=== PATIENT | male | born 1970 | race Caucasian/White ===

== ENCOUNTER 2023-12-31 21:24 | Inpatient (IN) ==
[2023-12-31] MEDS: morphine 4 MG/ML VIAL IV PRN (21:51)
[2023-12-31] MEDS: LACTATED RINGERS 1,000 ML IV ONE (21:51)
[2023-12-31] MEDS: KETOROLAC 30 MG/ML VIAL IV ONE (21:52)
[2023-12-31 22:00] LABS: Basophils # (Auto) 0.04 K/mcL (0.00-0.30); Basophils % (Auto) 0.7 % (0.0-2.0); Eosinophils # (Auto) 0.11 K/mcL (0.00-0.70); Eosinophils % (Auto) 1.8 % (0.0-7.0); Hematocrit 39.3 % (40.1-51.0); Hemoglobin 13.3 g/dL (13.7-17.5); Lymphocytes # (Auto) 3.18 K/mcL (1.50-4.80); Lymphocytes % (Auto) 52.8 % (15.5-49.0); Mean Cell Volume 86.4 fL (80.0-100.0); Mean Corpuscular HGB Conc 33.8 g/dL (31.0-36.0); Mean Platelet Volume 10.1 fL (8.8-12.5); Monocytes # (Auto) 0.33 K/mcL (0.10-0.90); Monocytes % (Auto) 5.5 % (1.0-12.0); Platelet Count 175 K/mcL (140-440); RBC 4.55 M/mcL (4.63-6.08); Red Cell Distribution Width 15.3 % (11.5-14.5)
[2023-12-31 22:19] LABS: Alcohol,Blood 0.255 gm/dL (<0.010)
[2023-12-31 23:00] LABS: ALT/SGPT 35 U/L (<40); AST/SGOT 56 U/L (<40); Albumin 4.2 gm/dL (3.2-5.2); Alkaline Phosphatase 75 U/L (39-117); Bilirubin,Total < 0.2 mg/dL (0.1-1.0); Blood Urea Nitrogen 8 mg/dL (6-20); Carbon Dioxide 22 mmol/L (22-30); Chloride 82 mmol/L (96-108); Globulin 2.1 gm/dL (2.2-3.7); Glomerular Filtration Rate 123; Glucose 90 mg/dL (70-105)
[2023-12-31] MEDS: 0.9 % SODIUM CHLORIDE 1,000 ML IV SCH (23:39)
[2023-12-31] MEDS ORDERED: SENNOSIDES 1 TABLET PO PRN (23:41)
[2023-12-31] MEDS ORDERED: ONDANSETRON 4 MG/2 ML VIAL IV PRN (23:41)
[2023-12-31] MEDS ORDERED: LACTULOSE 20 GM/30 ML ORAL.SOL PO PRN (23:41)
[2023-12-31] MEDS ORDERED: ACETAMINOPHEN 325 MG TABLET PO PRN (23:41)
[2024-01-01 00:59] LABS: Blood Urea Nitrogen 8 mg/dL (6-20); Calcium 8.3 mg/dL (8.6-10.4); Carbon Dioxide 24 mmol/L (22-30); Chloride 86 mmol/L (96-108); Glomerular Filtration Rate 123; Glucose 88 mg/dL (70-105)
[2024-01-01] MEDS: IPRATROPIUM/ALBUTEROL 3 ML AMPUL.NEB NEB ONE (01:00)
[2024-01-01] MEDS: IPRATROPIUM/ALBUTEROL 3 ML AMPUL.NEB NEB SCH (03:43)
[2024-01-01] MEDS: 0.9 % SODIUM CHLORIDE 10 ML SYRINGE IV SCH ×2 (06:22)
[2024-01-01] MEDS: morphine 10 MG/ML VIAL IV ONE (06:22)
[2024-01-01] MEDS: LORazepam 2 MG/ML VIAL IV PRN (06:46)
[2024-01-01] MEDS: METHOCARBAMOL 1,000 MG/10 ML VIAL IV ONE (08:31)
[2024-01-01 08:37] LABS: Blood Urea Nitrogen 7 mg/dL (6-20); Calcium 8.4 mg/dL (8.6-10.4); Carbon Dioxide 25 mmol/L (22-30); Chloride 90 mmol/L (96-108); Glomerular Filtration Rate 123; Glucose 75 mg/dL (70-105)
[2024-01-01 09:42] LABS: Appearance,Urine Clear (Clear); Bilirubin,Urine Negative (Negative); Color,Urine Yellow; Culture Indicated,Urine No; Glucose,Urine (UA) Negative (Negative); Ketones,Urine Negative (Negative); Leukocyte Esterase,Urine Negative /uL (Negative); Nitrate,Urine Negative (Negative); PH,Urine 6.5 (5.0-9.0); Protein,Urine 30 mg/dL (Negative); Urine Blood Negative ery/mcL (Negative); Urine RBC 0 /hpf (0-3); Urine Squamous Epithelial Cell 0 /hpf (0-4); Urine WBC 0 /hpf (0-4); Urobilinogen,Urine Normal
[2024-01-01] MEDS: IPRATROPIUM/ALBUTEROL 3 ML AMPUL.NEB NEB PRN ×2 (10:51→14:27)
[2024-01-01] MEDS: DOCUSATE SODIUM 100 MG CAPSULE PO SCH ×2 (10:56→20:48)
[2024-01-01] MEDS: THIAMINE 100 MG TABLET PO SCH (10:56)
[2024-01-01] MEDS ORDERED: SENNOSIDES 1 TABLET PO PRN (11:16)
[2024-01-01] MEDS ORDERED: HYDROcodone/APAP 5/325MG TABLET PO PRN (11:16)
[2024-01-01] MEDS ORDERED: POLYETHYLENE GLYCOL 3350 17 GM PACKET PO PRN (11:16)
[2024-01-01] MEDS ORDERED: POTASSIUM CHLORIDE 20 MEQ TABLET PO PRN ×2 (11:16)
[2024-01-01] MEDS ORDERED: MAGNESIUM SULFATE 2 GM/50 ML BAG IV PRN (11:16)
[2024-01-01] MEDS ORDERED: POTASSIUM CHLORIDE 40 MEQ in DEXTROSE 5% IN WATER 500 ML IV PRN (11:16)
[2024-01-01] MEDS ORDERED: chlordiazePOXIDE 25 MG CAPSULE PO PRN (11:22)
[2024-01-01] MEDS: 0.9 % SODIUM CHLORIDE 1,000 ML IV SCH ×2 (11:29→20:09)
[2024-01-01] MEDS: LOSARTAN 50 MG TABLET PO SCH (11:44)
[2024-01-01] MEDS: MAGNESIUM SULFATE 2 GM/50 ML BAG IV ONE (11:44)
[2024-01-01] MEDS: METHOCARBAMOL 500 MG TABLET PO PRN (11:46)
[2024-01-01] MEDS: NICOTINE 21 MG PATCH TOPICAL SCH (11:46)
[2024-01-01] MEDS: GABAPENTIN 100 MG CAPSULE PO PRN (11:47)
[2024-01-01] MEDS: THIAMINE 100 MG in 0.9 % SODIUM CHLORIDE 50 ML IV SCH (12:56)
[2024-01-01] MEDS: LABETALOL 5 MG/ML ML IV PRN (13:19)
[2024-01-01] MEDS: busPIRone 15 MG TABLET PO SCH (15:17)
[2024-01-01] MEDS: ENALAPRILAT 1.25 MG/ML VIAL IV PRN (15:17)
[2024-01-01] MEDS: morphine 4 MG/ML VIAL IV PRN (15:24)
[2024-01-01] MEDS ORDERED: GLYCOPYRROLATE 0.2 MG/ML VIAL IV ONE (17:52)
[2024-01-01] MEDS ORDERED: KETAMINE 50 MG/ML Syringe IV ONE (17:52)
[2024-01-01] MEDS ORDERED: DEXAMETHASONE 10 MG/ML VIAL ONE (17:52)
[2024-01-01] MEDS ORDERED: ONDANSETRON 4 MG/2 ML VIAL ONE (17:52)
[2024-01-01] MEDS ORDERED: PROPOFOL 200 MG/20 ML VIAL IV ONE (17:52)
[2024-01-01] MEDS ORDERED: MAGNESIUM SULFATE 2 GM/50 ML BAG IV ONE (17:56)
[2024-01-01] MEDS ORDERED: ceFAZolin 1 GM VIAL ONE (18:08)
[2024-01-01] MEDS ORDERED: TRANEXAMIC ACID 1,000 MG/10 ML VIAL ONE (18:22)
[2024-01-01] MEDS ORDERED: PHENYLephrine 1 MG/10 ML SYRINGE (ANEST) ONE (18:29)
[2024-01-01] MEDS ORDERED: ePHEDrine 50 MG/ML AMPUL IV ONE (18:35)
[2024-01-01] MEDS ORDERED: fentaNYL 100 MCG/2 ML VIAL ONE (18:41)
[2024-01-01] MEDS ORDERED: fentaNYL 100 MCG/2 ML VIAL IV PRN (18:58)
[2024-01-01] MEDS ORDERED: BENZOCAINE/MENTHOL 1 LOZENGE PO PRN (19:07)
[2024-01-01] MEDS: FLUTICASONE/SALMETEROL 250/50 INHALER #14 INH SCH (20:43)
[2024-01-01] MEDS: ceFAZolin 2 GM in DEXTROSE 5% IN WATER 50 ML IV SCH (20:44)
[2024-01-01] MEDS: MONTELUKAST 10 MG TABLET PO SCH (20:51)
[2024-01-01] MEDS: ACETAMINOPHEN 500 MG TABLET PO SCH (21:29)
[2024-01-01] MEDS: oxyCODONE IR 5 MG TABLET PO PRN (23:54)
[2024-01-02] MEDS: ceFAZolin 1 GM VIAL IV SCH (01:38)
[2024-01-02 05:58] LABS: Basophils # (Auto) 0.01 K/mcL (0.00-0.30); Basophils % (Auto) 0.2 % (0.0-2.0); Eosinophils # (Auto) 0 K/mcL (0.00-0.70); Eosinophils % (Auto) 0 % (0.0-7.0); Hematocrit 34.5 % (40.1-51.0); Hemoglobin 11.2 g/dL (13.7-17.5); Lymphocytes # (Auto) 0.67 K/mcL (1.50-4.80); Lymphocytes % (Auto) 13.2 % (15.5-49.0); Mean Cell Volume 90.6 fL (80.0-100.0); Mean Corpuscular HGB Conc 32.5 g/dL (31.0-36.0); Mean Platelet Volume 11.3 fL (8.8-12.5); Monocytes # (Auto) 0.31 K/mcL (0.10-0.90); Monocytes % (Auto) 6.1 % (1.0-12.0); Neutrophils % (Auto) 80.3 % (38.0-78.0); Platelet Count 131 K/mcL (140-440); RBC 3.81 M/mcL (4.63-6.08); Red Cell Distribution Width 15.6 % (11.5-14.5); WBC 5.1 K/mcL (4.5-11.0)
[2024-01-02 06:36] LABS: ALT/SGPT 23 U/L (<40); AST/SGOT 27 U/L (<40); Albumin 3.5 gm/dL (3.2-5.2); Albumin/Globulin Ratio 1.8 (1.0-2.3); Alkaline Phosphatase 66 U/L (39-117); Bilirubin,Direct < 0.2 mg/dL (0-0.3); Bilirubin,Total 0.4 mg/dL (0.1-1.0); Blood Urea Nitrogen 9 mg/dL (6-20); Calcium 8.3 mg/dL (8.6-10.4); Carbon Dioxide 24 mmol/L (22-30); Chloride 92 mmol/L (96-108); Glomerular Filtration Rate 123; Glucose 185 mg/dL (70-105); Lactate Dehydrogenase 158 U/L (135-225); Phosphorous 3.3 mg/dL (2.5-4.5); Triglycerides 44 mg/dL (<150)
[2024-01-02] MEDS: LEVOTHYROXINE 50 MCG TABLET PO SCH (07:28)
[2024-01-02] MEDS: PANTOPRAZOLE 40 MG TABLET PO SCH (07:28)
[2024-01-02] MEDS: MULTIVIT,THER IRON,CA,FA & MIN 1 TABLET PO SCH (08:08)
[2024-01-02] MEDS: SODIUM CHLORIDE 1 GM TABLET PO SCH (08:08)
[2024-01-02] MEDS: FOLIC ACID 1 MG TABLET PO SCH (08:09)
[2024-01-02] MEDS: VENLAFAXINE 75 MG TABLET PO SCH (08:09)
[2024-01-02] MEDS: ENOXAPARIN 40 MG/0.4 ML SYRINGE SQ SCH (08:10)
[2024-01-03 07:45] LABS: Blood Urea Nitrogen 8 mg/dL (6-20); Calcium 8.6 mg/dL (8.6-10.4); Carbon Dioxide 28 mmol/L (22-30); Chloride 94 mmol/L (96-108); Glomerular Filtration Rate 135; Glucose 108 mg/dL (70-105)
[2024-01-03] MEDS: THIAMINE 100 MG/ML VIAL ONE (08:29)
[2024-01-04 06:25] LABS: Hematocrit 28.8 % (40.1-51.0); Hemoglobin 9.2 g/dL (13.7-17.5)
[2024-01-04] MEDS: THIAMINE 100 MG TABLET PO SCH (08:28)
[2024-01-04 14:58] LABS: Hematocrit 29.7 % (40.1-51.0); Hemoglobin 9.4 g/dL (13.7-17.5)
[2024-01-05 06:25] LABS: Hematocrit 28.1 % (40.1-51.0); Hemoglobin 9.1 g/dL (13.7-17.5)
[2024-01-05 06:38] LABS: Blood Urea Nitrogen 8 mg/dL (6-20); Calcium 8.6 mg/dL (8.6-10.4); Carbon Dioxide 29 mmol/L (22-30); Chloride 95 mmol/L (96-108); Glomerular Filtration Rate 152; Glucose 110 mg/dL (70-105)
[2024-01-05] MEDS: ASPIRIN 81 MG TAB.CHEW CHEWED SCH (09:03)
== END 2024-01-05 12:25 | disposition home or self-care (01) | DRG 481 ==
LOC: ED 21:24 → ICU 01-01 09:39 → MEDSUR 01-03 13:01
PROVIDERS: ADMIT Internal Medicine; ATTEND Internal Medicine

== ENCOUNTER 2024-03-08 16:28 | Inpatient (IN) ==
[2024-03-08] MEDS ORDERED: IOPAMIDOL 100 ML BOTTLE IV ONE (16:29)
[2024-03-08 17:26] LABS: Basophils # (Auto) 0.04 K/mcL (0.00-0.30); Basophils % (Auto) 0.7 % (0.0-2.0); Eosinophils # (Auto) 0.06 K/mcL (0.00-0.70); Eosinophils % (Auto) 1.1 % (0.0-7.0); Hematocrit 40.6 % (40.1-51.0); Hemoglobin 13.6 g/dL (13.7-17.5); Lymphocytes # (Auto) 1.54 K/mcL (1.50-4.80); Lymphocytes % (Auto) 27.4 % (15.5-49.0); Mean Cell Volume 83.7 fL (80.0-100.0); Mean Corpuscular HGB Conc 33.5 g/dL (31.0-36.0); Mean Platelet Volume 9.7 fL (8.8-12.5); Monocytes # (Auto) 0.26 K/mcL (0.10-0.90); Monocytes % (Auto) 4.6 % (1.0-12.0); Platelet Count 188 K/mcL (140-440); RBC 4.85 M/mcL (4.63-6.08); Red Cell Distribution Width 17.1 % (11.5-14.5); WBC 5.6 K/mcL (4.5-11.0)
[2024-03-08 17:53] LABS: ALT/SGPT 57 U/L (<40); AST/SGOT 111 U/L (<40); Albumin/Globulin Ratio 1.3 (1.0-2.3); Alkaline Phosphatase 321 U/L (39-117); Bilirubin,Total 0.4 mg/dL (0.1-1.0); Blood Urea Nitrogen 4 mg/dL (6-20); Calcium 9.3 mg/dL (8.6-10.4); Carbon Dioxide 24 mmol/L (22-30); Chloride 77 mmol/L (96-108); Globulin 3.2 gm/dL (2.2-3.7); Glomerular Filtration Rate 135; Glucose 91 mg/dL (70-105)
[2024-03-08 18:08] LABS: Alcohol,Blood 0.215 gm/dL (<0.010)
[2024-03-08] MEDS: IPRATROPIUM/ALBUTEROL 3 ML AMPUL.NEB NEB ONE (20:17)
[2024-03-08] MEDS: PHENobarbital SOD 130 MG/ML VIAL IV ONE ×2 (21:13→22:10)
[2024-03-08] MEDS: THIAMINE 500 MG in 0.9 % SODIUM CHLORIDE 50 ML IV ONE (21:13)
[2024-03-08] MEDS ORDERED: NICOTINE POLACRILEX 2 MG GUM CHEW/PARK PRN (23:24)
[2024-03-08 23:39] LABS: Blood Urea Nitrogen 4 mg/dL (6-20); Calcium 9.1 mg/dL (8.6-10.4); Carbon Dioxide 27 mmol/L (22-30); Chloride 82 mmol/L (96-108); Glomerular Filtration Rate 135; Glucose 85 mg/dL (70-105)
[2024-03-09] MEDS ORDERED: ONDANSETRON 4 MG/2 ML VIAL IV PRN (00:06)
[2024-03-09] MEDS ORDERED: MAGNESIUM HYDROXIDE 30 ML ORAL.SUSP PO PRN (00:06)
[2024-03-09] MEDS: LORazepam 2 MG/ML VIAL IV PRN (00:36)
[2024-03-09] MEDS: NICOTINE 14 MG PATCH TOPICAL SCH (00:38)
[2024-03-09] MEDS: LORazepam 2 MG/ML VIAL ONE (00:38)
[2024-03-09] MEDS: NICOTINE 14 MG PATCH ONE (01:10)
[2024-03-09 03:28] LABS: Basophils # (Auto) 0.03 K/mcL (0.00-0.30); Basophils % (Auto) 0.6 % (0.0-2.0); Eosinophils # (Auto) 0.04 K/mcL (0.00-0.70); Eosinophils % (Auto) 0.8 % (0.0-7.0); Hematocrit 38.1 % (40.1-51.0); Hemoglobin 12.9 g/dL (13.7-17.5); Lymphocytes # (Auto) 1.38 K/mcL (1.50-4.80); Lymphocytes % (Auto) 28.9 % (15.5-49.0); Mean Cell Volume 83.2 fL (80.0-100.0); Mean Corpuscular HGB Conc 33.9 g/dL (31.0-36.0); Mean Platelet Volume 9.7 fL (8.8-12.5); Monocytes # (Auto) 0.39 K/mcL (0.10-0.90); Monocytes % (Auto) 8.2 % (1.0-12.0); Neutrophils % (Auto) 61.3 % (38.0-78.0); Platelet Count 169 K/mcL (140-440); RBC 4.58 M/mcL (4.63-6.08); Red Cell Distribution Width 17.3 % (11.5-14.5); WBC 4.8 K/mcL (4.5-11.0)
[2024-03-09 03:39] LABS: Sodium, Urine Random < 20 mmol/L
[2024-03-09 03:42] LABS: Osmolality,Urine 178 mOSM/kg (80-1000)
[2024-03-09 03:45] LABS: Thyroid Stimulating Hormone 6.64 uIU/mL (0.27-5.01)
[2024-03-09 03:46] LABS: ALT/SGPT 48 U/L (<40); AST/SGOT 87 U/L (<40); Albumin 3.6 gm/dL (3.2-5.2); Albumin/Globulin Ratio 1.2 (1.0-2.3); Alkaline Phosphatase 283 U/L (39-117); Bilirubin,Total 0.4 mg/dL (0.1-1.0); Blood Urea Nitrogen 4 mg/dL (6-20); Calcium 9.3 mg/dL (8.6-10.4); Carbon Dioxide 27 mmol/L (22-30); Chloride 84 mmol/L (96-108); Globulin 2.9 gm/dL (2.2-3.7); Glomerular Filtration Rate 152; Glucose 79 mg/dL (70-105)
[2024-03-09] MEDS: 0.9 % SODIUM CHLORIDE 10 ML SYRINGE IV SCH (05:33)
[2024-03-09] MEDS: LEVOTHYROXINE 50 MCG TABLET PO SCH (07:40)
[2024-03-09] MEDS: IPRATROPIUM/ALBUTEROL 3 ML AMPUL.NEB NEB PRN (07:48)
[2024-03-09] MEDS ORDERED: ALBUTEROL SULFATE 60 PUFF INHALER INH PRN (08:15)
[2024-03-09] MEDS: IPRATROPIUM/ALBUTEROL 3 ML AMPUL.NEB NEB SCH (08:43)
[2024-03-09] MEDS: THIAMINE 200 MG in 0.9 % SODIUM CHLORIDE 50 ML IV SCH (08:56)
[2024-03-09] MEDS: FLUTICASONE/SALMETEROL 250/50 INHALER INH SCH (08:56)
[2024-03-09] MEDS: HEPARIN 5,000 UNIT/ML VIAL SQ SCH (08:57)
[2024-03-09 10:28] LABS: Blood Urea Nitrogen 6 mg/dL (6-20); Calcium 9.6 mg/dL (8.6-10.4); Carbon Dioxide 26 mmol/L (22-30); Chloride 85 mmol/L (96-108); Glomerular Filtration Rate 123; Glucose 111 mg/dL (70-105)
[2024-03-09 13:21] LABS: Blood Urea Nitrogen 7 mg/dL (6-20); Calcium 9.7 mg/dL (8.6-10.4); Carbon Dioxide 27 mmol/L (22-30); Chloride 84 mmol/L (96-108); Glomerular Filtration Rate 135; Glucose 87 mg/dL (70-105)
[2024-03-09 16:50] LABS: Blood Urea Nitrogen 13 mg/dL (6-20); Calcium 9.6 mg/dL (8.6-10.4); Carbon Dioxide 28 mmol/L (22-30); Chloride 88 mmol/L (96-108); Glomerular Filtration Rate 135; Glucose 110 mg/dL (70-105)
[2024-03-09] MEDS: GABAPENTIN 300 MG CAPSULE PO SCH (20:32)
[2024-03-09] MEDS: MONTELUKAST 10 MG TABLET PO SCH (20:32)
[2024-03-09 20:54] LABS: Blood Urea Nitrogen 18 mg/dL (6-20); Calcium 9.8 mg/dL (8.6-10.4); Carbon Dioxide 28 mmol/L (22-30); Chloride 90 mmol/L (96-108); Glomerular Filtration Rate 123; Glucose 108 mg/dL (70-105)
[2024-03-10] MEDS: METHOCARBAMOL 500 MG TABLET PO PRN (03:27)
[2024-03-10 03:44] LABS: Blood Urea Nitrogen 13 mg/dL (6-20); Calcium 9.5 mg/dL (8.6-10.4); Carbon Dioxide 30 mmol/L (22-30); Chloride 90 mmol/L (96-108); Glomerular Filtration Rate 135; Glucose 98 mg/dL (70-105)
[2024-03-10 06:23] LABS: Basophils # (Auto) 0.02 K/mcL (0.00-0.30); Basophils % (Auto) 0.6 % (0.0-2.0); Eosinophils # (Auto) 0.04 K/mcL (0.00-0.70); Eosinophils % (Auto) 1.1 % (0.0-7.0); Hematocrit 37.9 % (40.1-51.0); Hemoglobin 12.4 g/dL (13.7-17.5); Lymphocytes # (Auto) 1.07 K/mcL (1.50-4.80); Lymphocytes % (Auto) 30.1 % (15.5-49.0); Mean Cell Volume 85.7 fL (80.0-100.0); Mean Corpuscular HGB Conc 32.7 g/dL (31.0-36.0); Mean Platelet Volume 9.8 fL (8.8-12.5); Monocytes # (Auto) 0.32 K/mcL (0.10-0.90); Neutrophils % (Auto) 58.9 % (38.0-78.0); Platelet Count 138 K/mcL (140-440); RBC 4.42 M/mcL (4.63-6.08); Red Cell Distribution Width 18.2 % (11.5-14.5); WBC 3.6 K/mcL (4.5-11.0)
[2024-03-10 06:30] LABS: ALT/SGPT 56 U/L (<40); AST/SGOT 157 U/L (<40); Albumin 3.2 gm/dL (3.2-5.2); Albumin/Globulin Ratio 1.2 (1.0-2.3); Alkaline Phosphatase 480 U/L (39-117); Bilirubin,Total 0.8 mg/dL (0.1-1.0); Blood Urea Nitrogen 12 mg/dL (6-20); Calcium 9.3 mg/dL (8.6-10.4); Carbon Dioxide 28 mmol/L (22-30); Chloride 90 mmol/L (96-108); Globulin 2.7 gm/dL (2.2-3.7); Glomerular Filtration Rate 152; Glucose 105 mg/dL (70-105)
[2024-03-10] MEDS: busPIRone 15 MG TABLET PO SCH (08:57)
[2024-03-10] MEDS: LOSARTAN 50 MG TABLET PO SCH (08:57)
[2024-03-10] MEDS: PNEUMOCOCCAL 23-VAL P-SAC VAC 0.5 ML SYRINGE IM ONE (15:03)
[2024-03-10] MEDS: ACETAMINOPHEN 325 MG TABLET PO PRN (18:36)
[2024-03-11 06:27] LABS: Basophils # (Auto) 0.03 K/mcL (0.00-0.30); Basophils % (Auto) 0.8 % (0.0-2.0); Eosinophils # (Auto) 0.07 K/mcL (0.00-0.70); Eosinophils % (Auto) 1.9 % (0.0-7.0); Hematocrit 36.5 % (40.1-51.0); Hemoglobin 11.8 g/dL (13.7-17.5); Lymphocytes # (Auto) 1.38 K/mcL (1.50-4.80); Lymphocytes % (Auto) 38.4 % (15.5-49.0); Mean Cell Volume 86.9 fL (80.0-100.0); Mean Corpuscular HGB Conc 32.3 g/dL (31.0-36.0); Monocytes # (Auto) 0.29 K/mcL (0.10-0.90); Monocytes % (Auto) 8.1 % (1.0-12.0); Neutrophils % (Auto) 50.5 % (38.0-78.0); Platelet Count 144 K/mcL (140-440); Red Cell Distribution Width 18.5 % (11.5-14.5); WBC 3.6 K/mcL (4.5-11.0)
[2024-03-11 06:59] LABS: ALT/SGPT 133 U/L (<40); AST/SGOT 413 U/L (<40); Albumin 3.3 gm/dL (3.2-5.2); Albumin/Globulin Ratio 1.3 (1.0-2.3); Alkaline Phosphatase 416 U/L (39-117); Bilirubin,Total 0.6 mg/dL (0.1-1.0); Blood Urea Nitrogen 10 mg/dL (6-20); Calcium 9.5 mg/dL (8.6-10.4); Carbon Dioxide 29 mmol/L (22-30); Chloride 93 mmol/L (96-108); Globulin 2.6 gm/dL (2.2-3.7); Glomerular Filtration Rate 152; Glucose 95 mg/dL (70-105)
[2024-03-11] MEDS: PNEUMOCOCCAL 23-VAL P-SAC VAC 0.5 ML SYRINGE IM ONE (11:24)
== END 2024-03-11 11:52 | disposition home or self-care (01) | DRG 641 ==
LOC: ED 16:28 → ICU 23:55 → MEDSUR 03-10 22:55
PROVIDERS: ADMIT Student in an Organized Health Care Education/Training Program; ATTEND Student in an Organized Health Care Education/Training Program